=== PATIENT | female | born 1995 | race Two or more races ===

== ENCOUNTER 2021-11-13 21:19 | Emergency (ER) | payer OTHER ==
[~2021-11-13] VITALS: Ht 154.9 cm; Wt 49.9 kg
[2021-11-14] MEDS ORDERED: DICLOFENAC POTA50 MG PO (05:59)
== END 2021-11-14 06:13 | disposition home or self-care (01) ==
LOC: ER 21:19
DX: N83.202 Unspecified ovarian cyst, left side (principal); Z88.6 Allergy status to analgesic agent; R10.2 Pelvic and perineal pain